=== PATIENT | male | born 1960 | race Caucasian/White ===

== ENCOUNTER 2018-05-30 11:00 | Inpatient (IN) | payer MEDICARE, OTHER ==
[~2018-05-30] VITALS: Ht 177.8 cm; Wt 63.5 kg
[~2018-05-30 11:00] MED LIST: AMIT10 PO; AMIT50 PO; Aspirin EC81 MG PO; BUPR150ER PO; LORA10ER PO; METH10 PO; OMEP20ER PO; PROM25 PO; TRAZ100 PO; [UNRECOGNIZED DRUG - OTHER] PO
[2018-05-30 11:30] LABS: BASOPHILS ABSOLUTE AUTO 0.05 K/mm3 (0.00-0.23); BASOPHILS PERCENT AUTO 1 % (0-2); EOSINOPHILS ABSOLUTE AUTO 0.16 K/mm3 (0.00-0.68); EOSINOPHILS PERCENT AUTO 2 % (0-6); Hematocrit 43.4 % (37.0-53.0); Hemoglobin 13.9 g/dL (13.5-17.5); IMMATURE GRAN ABSOLUTE AUTO 0.04 K/mm3 (0.00-0.10); IMMATURE GRAN PERCENT AUTO 0 % (0-1); LYMPHOCYTES ABSOLUTE AUTO 0.83 K/mm3 (0.84-5.20); LYMPHOCYTES PERCENT AUTO 8 % (21-46); MONOCYTES ABSOLUTE AUTO 0.84 K/mm3 (0.16-1.47); MONOCYTES PERCENT AUTO 8 % (4-13); Mean Corpuscular Volume 97 fL (80-100); Mean Platelet Volume 10.4 fL (9.1-12.4); NEUTROPHILS ABSOLUTE AUTO 9.06 K/mm3 (1.96-9.15); NEUTROPHILS PERCENT AUTO 82 % (41-73); Platelet Count 268 K/mm3 (150-400); RDW Coefficient Variation 12.4 % (11.7-14.2); RDW Standard Deviation 44.4 fL (35.1-46.3); Red Blood Cell Count 4.49 M/mm3 (4.30-5.90); White Blood Cell Count 10.98 K/mm3 (4.00-11.30)
[2018-05-30 11:44] LABS: Source, Urine Catheter
[2018-05-30 12:03] LABS: Blood, Urine 2+ (Neg); Glucose Qualitative, Urine Neg (Neg); Ketones, Urine 1+ (Neg); Leukocyte Esterase, Urine 1+ (Neg); Nitrite, Urine Neg (Neg); Protein, Urine 1+ (Neg); Specific Gravity, Urine 1.025 (1.003-1.022); Urobilinogen, Urine 2+ (Normal)
[2018-05-30 12:10] LABS: Appearance, Urine Clear (Clear); Bilirubin, Urine 1+ (Neg); Color, Urine Yellow (P-Yellow); Mucus Mod (0-Heavy)
[2018-05-30 12:12] LABS: Bacteria Few /hpf; Squamous Epithelial Cells Not Seen /hpf (Few)
[2018-05-30 12:13] LABS: Troponin I <0.015 ng/mL (0.000-0.040)
[2018-05-30 12:14] LABS: Alanine Aminotransfer (ALT/SGP 18 U/L (12-78); Albumin, Blood 3.1 g/dL (3.4-5.0); Albumin/Globulin Ratio 0.9 (0.8-1.8); Alk Phos 141 U/L (50-136); Anion Gap 4 mmol/L (6-16); Aspartate Aminotrans (AST/SGOT 44 U/L (12-37); Bilirubin, Total 0.5 mg/dL (0.1-1.0); Blood Urea Nitrogen 15 mg/dL (8-24); Bun/Creatinine Ratio 17.5 (12.0-20.0); CO2, Blood 29 mmol/L (21-32); Calcium, Blood 8.3 mg/dL (8.5-10.1); Chloride, Blood 106 mmol/L (98-108); Creatinine, Blood 0.86 mg/dL (0.60-1.20); Globulin, Blood 3.6 g/dL (2.2-4.0); Glomerular Filtration Rate >60 (60-); Glucose, Blood 93 mg/dL (70-99); Potassium, Blood 3.5 mmol/L (3.5-5.5); Sodium, Blood 139 mmol/L (136-145); Total Protein, Blood 6.7 g/dL (6.4-8.2)
[2018-05-30] MEDS ORDERED: ALBU90OI INH (13:39)
--- NOTE | 2018-05-30 18:45 | NUR ---
PT. UP IN BED BEING FED BY ROLLER STAKER. SPOUSE AT BEDSIDE WILL BE STAYING THE NIGHT.
[2018-05-31 05:38] LABS: BASOPHILS ABSOLUTE AUTO 0.05 K/mm3 (0.00-0.23); BASOPHILS PERCENT AUTO 1 % (0-2); EOSINOPHILS ABSOLUTE AUTO 0.16 K/mm3 (0.00-0.68); EOSINOPHILS PERCENT AUTO 2 % (0-6); Hemoglobin 13.1 g/dL (13.5-17.5); IMMATURE GRAN ABSOLUTE AUTO 0.02 K/mm3 (0.00-0.10); IMMATURE GRAN PERCENT AUTO 0 % (0-1); LYMPHOCYTES ABSOLUTE AUTO 1.08 K/mm3 (0.84-5.20); LYMPHOCYTES PERCENT AUTO 14 % (21-46); MONOCYTES ABSOLUTE AUTO 0.75 K/mm3 (0.16-1.47); MONOCYTES PERCENT AUTO 10 % (4-13); Mean Corpuscular HGB 30.3 pg (26.0-34.0); Mean Corpuscular Volume 95 fL (80-100); Mean Platelet Volume 10.8 fL (9.1-12.4); NEUTROPHILS ABSOLUTE AUTO 5.79 K/mm3 (1.96-9.15); NEUTROPHILS PERCENT AUTO 74 % (41-73); Platelet Count 261 K/mm3 (150-400); RDW Coefficient Variation 12.2 % (11.7-14.2); RDW Standard Deviation 42.5 fL (35.1-46.3); Red Blood Cell Count 4.33 M/mm3 (4.30-5.90); White Blood Cell Count 7.85 K/mm3 (4.00-11.30)
[2018-05-31 06:12] LABS: Alanine Aminotransfer (ALT/SGP 28 U/L (12-78); Albumin, Blood 3.1 g/dL (3.4-5.0); Albumin/Globulin Ratio 0.9 (0.8-1.8); Anion Gap 8 mmol/L (6-16); Aspartate Aminotrans (AST/SGOT 31 U/L (12-37); Bilirubin, Total 0.5 mg/dL (0.1-1.0); Blood Urea Nitrogen 18 mg/dL (8-24); Bun/Creatinine Ratio 20.5 (12.0-20.0); CHOL/HDL RATIO 3.9; CO2, Blood 27 mmol/L (21-32); Calcium, Blood 8.4 mg/dL (8.5-10.1); Chloride, Blood 105 mmol/L (98-108); Cholesterol 135 mg/dL (50-200); Creatinine, Blood 0.88 mg/dL (0.60-1.20); Globulin, Blood 3.4 g/dL (2.2-4.0); Glomerular Filtration Rate >60 (60-); Glucose, Blood 86 mg/dL (70-99); HDL Cholesterol 35 mg/dL (>39); LDL/HDL RATIO 2.4; Low Density Lipoprotein Chol 84 mg/dL (0-110); Magnesium, Blood 2.3 mg/dL (1.6-2.4); Potassium, Blood 3.5 mmol/L (3.5-5.5); Sodium, Blood 140 mmol/L (136-145); Total Protein, Blood 6.5 g/dL (6.4-8.2); Triglycerides 79 mg/dL (30-160); Very Low Density Lipoprot Chol 15 mg/dL (6-32)
[2018-05-31 06:35] LABS: Alk Phos 139 U/L (50-136)
--- NOTE | 2018-05-31 07:20 | NUR ---
05/31/18 0610 stayed with pt all night. Pt repositioned q 2 hours.kandis care given. Only took small sips of soda last night. W lisa states he has been eating poorly lately. Mumbles when asked questions.
--- NOTE | 2018-05-31 13:50 | NUR ---
Patient was lying in bed with , Toyin, bedside. Patient did not track well with conversation but did mumble and display many facial expressions. I talked at length with Toyin facilitating a life/family review, learning about the patient's medical history and Toyin's struggles throughout the process. I explored spiritual beliefs, provided companionship and encouraged self-care. Patient and Toyin responded well and Toyin expressed gratitude for the visit.
--- NOTE | 2018-05-31 17:44 | NUR ---
SHIFT SUMMARY PATIENT PLEASANT. MILDLY CONFUSED AND GARBLED SPEECH RELATED TO HIS PARKINSONS. PATIENT HAS GROSS MOVEMENT IN HIS EXTREMITIES.
--- NOTE | 2018-06-01 07:09 | NUR ---
SHIFT SUMMARY PT IS A 58 Y/O MALE, ADMITTED FOR WEAKNESS. HE HAS A HX OF PARKINSONS, AND IS VERY STIFF WITH SOME CONTRACTURES IN THE BUE. THE PT SLEPT VERY WELL DURING THE NIGHT, AND WOULD NOT WAKE ENOUGH TO TAKE HIS BEDTIME SINEMET. VITALS REMAINED STABLE. PT APPEARED COMFORTABLE WITH NO S/S OF PAIN OR DISTRESS DURING THE NIGHT. PT'S REMAINED IN THE ROOM. NO OTHER ACUTE CHANGES IN PT CONDITION NOTED. WILL CONTINUE TO MONITOR AND TREAT PER EMAR.
--- NOTE | 2018-06-01 17:03 | NUR ---
SHIFT SUMMARY PATIENT PLEASANT. BEDBOUND CURRENTLY. WORKED WITH PHYSICAL THERAPY TODAY AND WAS ABLE TO STAND ALTHOUGH HE WAS NOT MOTIVATED. BED ALARM ON, PATIENT EATING FOR HIS .
[2018-06-02 06:29] LABS: BASOPHILS ABSOLUTE AUTO 0.05 K/mm3 (0.00-0.23); BASOPHILS PERCENT AUTO 1 % (0-2); EOSINOPHILS ABSOLUTE AUTO 0.22 K/mm3 (0.00-0.68); EOSINOPHILS PERCENT AUTO 2 % (0-6); Hematocrit 42.8 % (37.0-53.0); Hemoglobin 13.6 g/dL (13.5-17.5); IMMATURE GRAN ABSOLUTE AUTO 0.04 K/mm3 (0.00-0.10); IMMATURE GRAN PERCENT AUTO 0 % (0-1); LYMPHOCYTES ABSOLUTE AUTO 0.96 K/mm3 (0.84-5.20); LYMPHOCYTES PERCENT AUTO 9 % (21-46); MONOCYTES ABSOLUTE AUTO 0.71 K/mm3 (0.16-1.47); MONOCYTES PERCENT AUTO 7 % (4-13); Mean Corpuscular HGB 30.6 pg (26.0-34.0); Mean Corpuscular HGB Conc 31.8 g/dL (31.5-36.5); Mean Corpuscular Volume 96 fL (80-100); Mean Platelet Volume 10.6 fL (9.1-12.4); NEUTROPHILS ABSOLUTE AUTO 8.39 K/mm3 (1.96-9.15); NEUTROPHILS PERCENT AUTO 81 % (41-73); Platelet Count 285 K/mm3 (150-400); RDW Coefficient Variation 12.1 % (11.7-14.2); RDW Standard Deviation 43.4 fL (35.1-46.3); Red Blood Cell Count 4.44 M/mm3 (4.30-5.90); White Blood Cell Count 10.37 K/mm3 (4.00-11.30)
[2018-06-02 06:57] LABS: Alanine Aminotransfer (ALT/SGP 10 U/L (12-78); Albumin/Globulin Ratio 0.9 (0.8-1.8); Alk Phos 144 U/L (50-136); Anion Gap 7 mmol/L (6-16); Aspartate Aminotrans (AST/SGOT 15 U/L (12-37); Bilirubin, Total 0.6 mg/dL (0.1-1.0); Blood Urea Nitrogen 22 mg/dL (8-24); Bun/Creatinine Ratio 23.7 (12.0-20.0); CO2, Blood 29 mmol/L (21-32); Calcium, Blood 8.5 mg/dL (8.5-10.1); Chloride, Blood 104 mmol/L (98-108); Creatinine, Blood 0.93 mg/dL (0.60-1.20); Globulin, Blood 3.5 g/dL (2.2-4.0); Glomerular Filtration Rate >60 (60-); Glucose, Blood 98 mg/dL (70-99); Potassium, Blood 3.7 mmol/L (3.5-5.5); Sodium, Blood 140 mmol/L (136-145); Total Protein, Blood 6.5 g/dL (6.4-8.2)
--- NOTE | 2018-06-02 07:20 | NUR ---
cooperative, responsive to voice, hard to assess due to minimum verbal responses, call light in reach, saline locked, walking rounds completed with returning day staff
--- NOTE | 2018-06-02 17:47 | NUR ---
SHIFT SUMMARY NO ACUTE CONCERNS AT THIS TIME. PATIENT IS ASSESSED, STILL STRUGGLING TO FULFILL THE ASSESSMENT DUE TO THE PATIENTS INABILITY TO COMMUNICATE. HIS SPEECH IS BECOMING MORE GARBLED. WILL CONTINUE TO MONITOR FOR CHANGES.
--- NOTE | 2018-06-03 06:27 | NUR ---
SHIFT SUMMARY PT IS A 58 Y/O FEMALE, ADMITTED FOR WEAKNESS. HE HAS A HX OF PARKINSON'S, AND IS VERY STIFF AND DIFFICULT TO MOVE AND TURN. HE IS A&O X SELF AND FAMILY, AND OCCASIONALLY RESISTANT TO CARE. HIS REMAINS AT THE BEDSIDE DURING THE NIGHT. HE DENIED ANY COMPLAINTS OF PAIN, NAUSE OR SOB, AND APPEARED TO REST COMFORTABLY THROUGH THE NIGHT. VITALS REMAINED STABLE. NO OTHER ACUTE CHANGES IN PT CONDITION NOTED. WILL CONTINUE TO MONITOR AND TREAT PER EMAR.
--- NOTE | 2018-06-03 18:54 | NUR ---
SHIFT SUMMARY: PT SHOWED SIGNS OF PAIN THIS MORNING AND EARLY AFTERNOON. MEDICATED WITH PO ULTRAM CRUSHED IN APPLESAUCE. THIS EVENING HE REFUSED ALL PO MEDICATIONS AND DINNER. HE WORKED WITH PT/OT, SEE THEIR NOTES ON CARE. HE IS A FULL ASSIST. NEEDS ASSIST WITH MEALS. ROB LIFT FOR ANY OUT OF BED. HE IS NOT ABLE TO STAND AT BEDSIDE. ATTENDS IN PLACE FOR INCONT.
[2018-06-04 06:06] LABS: Albumin, Blood 2.9 g/dL (3.4-5.0); Anion Gap 7 mmol/L (6-16); Blood Urea Nitrogen 15 mg/dL (8-24); Bun/Creatinine Ratio 20.4 (12.0-20.0); CO2, Blood 22 mmol/L (21-32); Calcium, Blood 8.4 mg/dL (8.5-10.1); Chloride, Blood 103 mmol/L (98-108); Creatinine, Blood 0.74 mg/dL (0.60-1.20); Glomerular Filtration Rate >60 (60-); Glucose, Blood 100 mg/dL (70-99); Phosphorus, Blood 2.9 mg/dL (2.5-4.9); Potassium, Blood 4.5 mmol/L (3.5-5.5); Sodium, Blood 132 mmol/L (136-145)
--- NOTE | 2018-06-04 06:49 | NUR ---
SHIFT SUMMARY PT VERY WEAK AND SLEEPY ENTIRE SHIFT. IN RM AT BS THRU OUT THE SHIFT. ABLE TO WAKE PT BRIEFLY AND ASSIST PT WITH HS MEDS. BOWEL CARE GIVEN AT HS. EFFECTIVE THIS AM. PT INCONTINENT OF BOWEL AND BLADDER. HX OF PARKINSONS WITH CONTRACTURES, BUT PREVIOUSLY AMBULATORY PRIOR TO FALL AT HOME; PT NOW BED BOUND WITH CONFUSION AND GARBLED SPEECH. PER SHIFT REPORT, LABS AND TESTS NEGATIVE FOR CVA. LIDOCAINE PATCH REMOVED FROM LOW BACK AT HS, PER EMAR. PT FLOATED ON PILLOWS FOR COMFORT D/T CONTRACTURES. REPORT GIVEN TO ONCOMING RN.
--- NOTE | 2018-06-04 09:48 | NUR ---
review of patient with angélica therapist. Gracie leigh visit this week will meet with today. to review a plan.
--- NOTE | 2018-06-04 11:45 | NUR ---
Attempted to visit with Georges and his . Georges is currently resting with eyes closed and there are several visitors at the bedside talking with his . His requested that PC return later today.
--- NOTE | 2018-06-04 15:30 | NUR ---
Long conversation with Toyin this afternoon in Georges's room. He slept during the whole visit. Toyin is requesting for Georges to be a DNR and is interested in hospice services. She reports that over the past week Georges has stopped walking, stopped eating, stopping drinking and she feels that "He has given up." She reports his dementia has progressed to the point where she had to quick her job as he wasn't able to be home alone safely. Toyin states he is at risk for aspiration when evaluated by ST and Toyin states that Georges was unable to follow directions or participate in therapy visit. Georges had a fall recently and has a compression fracture in his back. She reports his quality of life has greatly declined and after speaking with her sons they agree that hospice is a good option for Georges. Toyin states they live on Georges's social security income $1400 a month. She states $700 goes to rent and by the time utilites are paid there is very little money left. She receives $300/month in food stamps. She is working with [employer] to start the Medicaid process. Encouraged her to contact aging and people with disabilities [facility] to get the medicaid process started. Toyin states she doesn't feel like she is able to take care of Georges 11/09. She states her son can help out some, but isn't always available. They live in [place]. She is hopeful that she will be able to find a foster home type facility close to [place] where Georges could go to be cared for on hospice. SISSY for Idalia, account planner to follow up with Toyin re: wanda planning. Discussed hospice services with Toyin and answered her questions. She would like to pursue this option. Will talk with Dr. Alba re: DNR and comfort care orders per Toyin's request. Finances are going to be a discharge barrier for Georges. [employer] is working with Toyin. PC will continue to follow for symptom management.
--- NOTE | 2018-06-04 18:28 | NUR ---
Pt and family are non-christian. Georges slept throughout visit while I spoke to spouse, Toyin at bedside. She admits to feeling overwhelmed. She is clearly grieving Georges' rapid decline. She is worried about many things going forward. Toyin states that she has been told she must Georges home with hospice until a suitable place is available. Toyin is very worried that she will not be able to provide that care Georges needs. She admits she has not slept well "in days." Toyin responded well to being heard and affirmed. Advised she continue to express her concerns to nursing and discharge team. I also assured her of highly skilled and compassionate hospice support. This appeared to calm her. I will remain availbable.
--- NOTE | 2018-06-04 18:37 | NUR ---
SHIFT SUMMARY COMFORT CARE. SPOUSE AT BEDSIDE FOR MOST OF DAY. ABLE TO SWALLOW MEDS CRUSHED IN PUDDING/YOGURT. CONTRACTURES, BEDREST. DECREASED APPETITE AND URINE OUTPUT. NOT COMMUNICATING VERBALLY TODAY. OPENS EYES SPONTANEOUSLY. PUREED/SOFT DIET. THICKENED LIQUIDS. AWAITING HOSPICE.
--- NOTE | 2018-06-05 05:26 | NUR ---
PRINTING MACHINE OPERATOR TAPE RULES SUMMARY NO ACUTE CHANGES THIS SHIFT. PT REMAINS ON COMFORT CARE. PT FAIRLY ALERT AND ORIENTED AT START OF SHIFT, ANSWERING SOME QUESTIONS AND INTERACTING WITH HIS . PT STATES "THIS IS THE MOST HE'S TALKED IN A FEW DAYS". PT DENIES PAIN, SOB, N/V. TAKES PILLS WELL WITH PUDDING. WILL CONTINUE TO KEEP PT COMFORTABLE.
--- NOTE | 2018-06-05 13:08 | NUR ---
Pt is resting in bed upon arrival. His Toyin present during visit. Pt reports his pain is currently managed and denies any need for pain intervention at this time. Toyin reports she is still considering hospice but her biggest concerns is finding placement. No other concerns reported at this time. Spoke with Pt's nurse Maria M and she reports no concens at this time. Spoke with palliative nurse Reina and she reports ostomy care nurse Colleen currently working with Pt and family with medicaid process. Will remain available.
--- NOTE | 2018-06-05 14:27 | NUR ---
UPDATE PT. TRIED TO STAND ON HIS OWN BECAUSE HE THOUGHT HE NEEDED TO LEAVE. HIS WAS THERE TO HELP HIM AND CALM HIM DOWN. HE SAT DOWN ON THE EDGE OF THE BED AND ALLOWED US TO SHAVE HIM. THIS CAUSED HIM PAIN SO WE MEDICATED WITH TRAMADOL. HE IS RESTING NOW. LEFT FOR A MIN BUT DID MENTION THAT SHE WOULD LIKE TO TAKE HIM FOR A WALK WHEN SHE GETS BACK
--- NOTE | 2018-06-05 15:11 | NUR ---
UPDATE PT. WENT ON WALK IN WHEELCHAIR WITH
--- NOTE | 2018-06-05 17:05 | NUR ---
UPDATE ATTENDS CHECKED AND WAS DRY
--- NOTE | 2018-06-05 18:26 | NUR ---
HE IS NOW IN ROOM 360. HIS IS AT HIS BEDSIDE. CC CART FOR FAMILY IN THE ROOM. SHE WAS FEEDING HIM DINNER. HE DID NOT EAT WELL BUT BETTER, SHE SAYS THAN THE PAST 2 DAYS. DINNER MEDS GIVEN WHOLE IN HIS MASHED POTATOES. HE IS CONFUSED BUT CALM. SAYS SHE THINKS HE IS PRETTY COMFORTABLE.
--- NOTE | 2018-06-05 18:29 | NUR ---
HE IS NOW IN ROOM 360. AT BEDSIDE. SHE FED HIM SOME DINNER. SHE FEELS HE IS PRETTY COMFORTABLE. HE IS CONFUSED BUT CALM. CC CART IN ROOM FOR FAMILY. HIS SAYS SHE MAY NOT SPEND THE NIGHT TONIGHT.
--- NOTE | 2018-06-06 06:08 | NUR ---
SHIFT SUMMARY PT IS A 58 Y/O MALE, ADMITTED FOR WEAKNESS AND CURRENTLY ON COMFORT CARE. THE PT IS A&O X SELF AND FAMILY ONLY, WITH A HISTORY OF DEMENTIA AND PARKINSONS, AND GARBLED SPEECH. THE PT APPEARED COMFORTABLE THROUGH THE NIGHT, WITH NO COMPLAINTS OF S/S OF PAIN, NAUSEA OR SOB. NO OTHER ACUTE CHANGES IN CONDITION NOTED. WILL CONTINUE TO MONITOR AND TREAT PER EMAR.
--- NOTE | 2018-06-06 08:14 | NUR ---
PATIENTS ATTENDS WERE CHECKED AND THEY WERE CLEAN AND DRY.
--- NOTE | 2018-06-06 08:59 | NUR ---
PATIENT ATE 100% AND DRANK 120 OF ORANGE JUICE AND WAS FED.
--- NOTE | 2018-06-06 10:19 | NUR ---
ALERT, CONFUSED, COMFORTABLE. WILL BE FED BREAKFAST.
--- NOTE | 2018-06-06 10:20 | NUR ---
ATE SOME BREAKFAST AND TOOK MEDS WHOLE IN PUDDING. ATTENDS DRY SO FAR THIS SHIFT. CONFUSED. SAT UP ON SIDE OF BED. HE APPEARS COMFORTABLE.
--- NOTE | 2018-06-06 11:35 | NUR ---
Went to visit with Toyin and Georges this morning. Georges is laying in bed staring at the TV. He did not turn his head or look toward the direction of this mortgage underwriter as I walked in the room. Toyin is at the bedside, there is a room full of people visiting at this time. Will allow them to visit. Georges appears to be comfortable at this time. CM notes reviewed. PC will continue to stress the importance of getting the medicaid process going. Pt was fed this morning and ate all of his meal. He doesn't appear imminent at this time. PC will continue to follow for symptom manangement and family support through the discharge planning process.
--- NOTE | 2018-06-06 12:20 | NUR ---
HIS AND 4 OTHER VISITORS WERE HERE FOR ABOUT AN HOUR. DRINKS ON CC CART RENEWED. ALL VISITORS GONE NOW. BASEBALL CLUB MANAGER IS FEEDING HIM SOME LUNCH. NO APPARENT DISTRESS.
--- NOTE | 2018-06-06 13:31 | NUR ---
PATIENT ATE 100% OF LUNCH AND DRANK 120% OF JUICE AND IS A FEEDER.
--- NOTE | 2018-06-06 16:02 | NUR ---
NO CHANGES. HIS JUST RETURNED.
--- NOTE | 2018-06-06 16:03 | NUR ---
NO CHANGES. HE HAS BEEN AWAKE ALL DAY AND APPEARS COMFORTABLE.
--- NOTE | 2018-06-06 16:09 | NUR ---
PATIENT WAS ABLE TO USE THE URINAL WITH ASSISTANCE THIS SHIFT AND VOIDED 200.
--- NOTE | 2018-06-06 17:13 | NUR ---
PATIENTS ATTENDS WERE CHECKED AND THEY WERE CLEAN AND DRY. PATIENT ALSO VOIDED 100 IN URINAL.
--- NOTE | 2018-06-06 18:10 | NUR ---
HIS FED HIM SOME DINNER. NO CHANGES. HE HAS HX OF PAIN BUT I CANNOT SEE PAIN AND HE IS UNRELIABLE IN HIS ANSWERS DUT TO HIS DEMENTIA. HE HAS LOOKED COMFORTABLE ALL DAY.
--- NOTE | 2018-06-07 06:21 | NUR ---
SHIFT SUMMARY PT IS A 58 Y/O MALE, WITH A HX OF DEMENTIA AND PARKINSONS, ADMITTED FOR WEAKNESS. HE IS A&O X SELF AND FAMILY ONLY, AND CURRENTLY ON COMFORT CARE AND BEDREST. PT APPEARED COMFORTABLE AND SLEPT WELL THROUGH THE NIGHT WITH NO S/S OF PAIN OR DISTRESS. PT'S REMAINED IN THE ROOM THROUGH THE NIGHT. NO OTHER ACUTE CHANGES IN PT CONDITION NOTED. WILL CONTINUE TO MONITOR AND TREAT PER EMAR.
--- NOTE | 2018-06-07 08:03 | NUR ---
PATIENTS ATTENDS WERE CAHNGED AND PATIENT WAS REPOSITIONED.
--- NOTE | 2018-06-07 09:45 | NUR ---
PATIENT ATE 50% OF BREAKFAST AND DRANK 120 OF ORANGE JUICE AND WAS A FEEDER.
--- NOTE | 2018-06-07 11:20 | NUR ---
PATIENTS ATTENDS WERE CHECKED AND THEY WERE CLEAN AND DRY. PATIETN IS REPOSTIONING HIMSELF IN THE BED AT THIS TIME.
--- NOTE | 2018-06-07 12:57 | NUR ---
PATIENT ATE 25% OF LUNCH THIS SHIFT AND DRANK 120 OF APPLE JUICE AND WAS FED.
--- NOTE | 2018-06-07 12:58 | NUR ---
PATIENTS ATTENDS WERE CHECKED AND THEY WERE CLEAN AND DRY AND PATEINT WAS REPOSTIONED.
--- NOTE | 2018-06-07 15:02 | NUR ---
PATIENTS ATTENDS WERE CHANGED AND PATIENT WAS REPOSITIONED.
--- NOTE | 2018-06-07 19:33 | NUR ---
SHIFT SUMMARY- PT HAS HAD NO ACUTE CHANGES T/O THE DAY. SPEECH IS GARBLED AND DIFFICULT TO UNDERSTAND AND PT HAS SLEPT T/O THE SHIFT; STATES THIS IS A BAD DAY, USUALLY HE WILL DO THIS FOR TWO DAYS AND THEN HE WILL HAVE A GOOD DAY. SOME MEDICATIONS WERE NOT ADMINISTERED D/T PT SLEEPING AND UNABLE TO WAKE.PT SPOUSE IS AT BEDSIDE, BEDSIDE REPORT COMPLETE.
--- NOTE | 2018-06-08 04:34 | NUR ---
SHIFT SUMMARY PT HAS SLEPT T/O SHIFT. PT AND SPOUSE REFUSED PM MEDS. PT HAD BED BATH AND LINEN CHANGED. PT HAD NO ISSUES WITH DISCOMFORT OR ANXIETY. PT STAYED NIGHT WITH PT. PT CURRENTLY SLEEPING AND IN NO DISTRESS. CALL LIGHT IN REACH AND BED ALARM ON.
--- NOTE | 2018-06-08 18:00 | NUR ---
SHIFT SUMMARY PT AGITATED THIS AM & REFUSED TO TAKE MOST MEDICATIONS. PT MORE RELAXED THIS AFTERNOON/EVENING. PT TOOK PAIN MEDICATION ONCE THIS SHIFT. PT RESTING IN BED WITH AT BEDSIDE. PHYSICAL THERAPY WORKED WITH PT THIS SHIFT. WILL CONTINUE TO MONITOR FOR PAIN/DISCOMFORT UNTIL TURNOVER IS COMPLETE.
--- NOTE | 2018-06-08 23:33 | NUR ---
COMFORT CARE 7036 MEDICATIONS GIVEN AT THIS TIME. DID NOT TAKE COLACE (SPIT OUT BOTH). REPOSITIONED. DIMITRIOS-CARE AND BREIF CHANGE AT THIS TIME. GIVEN THICKENED OJ. BED IN LOWEST POSITION. ALARM ON. CALL LIGHT WITHIN REACH. AT BEDSIDE. WCTM.
--- NOTE | 2018-06-09 00:01 | NUR ---
COMFORT CARE 0001 APPEARED TO BE RESTING. WITHOUT C/O PAIN/DISCOMFORT. REPOSITIONED. AT BEDSIDE. WCTM. BED IN LOWEST POSITION. ALARM ON.
--- NOTE | 2018-06-09 03:55 | NUR ---
COMFORT CARE 0215 REPOSITIONED. APPEARS TO BE RESTING COMFORTABLY. AT BEDSIDE. BED IN LOWEST POSITION. CALL LIGHT WITHIN REACH. [facility].
--- NOTE | 2018-06-09 04:43 | NUR ---
COMFORT CARE 0443 APPEARS TO BE RESTING COMFORTABLY. AT BEDSIDE. NO ACUTE CHANGES. BED IN LOWEST POSITION. ALARM ON. CALL LIGHT IN REACH. WCTM.
--- NOTE | 2018-06-09 06:48 | NUR ---
COMFORT CARE 0632 REPOSITIONED SHORTLY PRIOR TO ASSESSMENT WELL BREIF CHANGE. APPEARS TO BE RESTING COMFORTABLY. AT BEDSIDE. CALL LIGHT WITHIN REACH. BED IN LOWEST POSITION. [facility].
--- NOTE | 2018-06-09 07:24 | NUR ---
SHIFT SUMMARY ALERT, ANSWERS QUESTIONS SLOWLY, BUT APPROPRIATELY. NO ACUTE CHANGES OVERNIGHT. REPOSITIONING AND ATTENDS CHANGES APPROPRIATELY. AT BEDSIDE. CALL LIGHT WITHIN REACH. BED IN LOWEST POSITION. CONTINUED TO MONITOR THROUGHOUT SHIFT. REPORT GIVEN TO ONCOMING RN.
--- NOTE | 2018-06-09 18:00 | NUR ---
NO ACUTE CHANGES NOTED THIS SHIFT, PO MEDS TAKEN EXCEPT COLACE, SAYS HE SPITS THEM OUT AND WANTS ONLY THE MIRALAX GIVEN. PT TURNED AND CHANGED NEEDED. WILL CONTINUE TO MONITOR AND REPORT TO ONCOMING RN
--- NOTE | 2018-06-10 04:26 | NUR ---
SHIFT SUMMARY NO ISSUES NOTED. PT REMAINED COMFORTABLE AND RELAXED. PT CURRENTLY SLEEPING WITH IN ATTENDANCE. CALL LIGHT IN REACH AND BED ALARM ON.
--- NOTE | 2018-06-10 10:46 | NUR ---
Stopped in to check on Bertram this morning. He is alone in his room at this time. Nursing just finished giving am meds to him. He waved to this mortgage or loan underwriter as I walked into his room. He is alert, but his speech is garbled and difficult to understand. He doesn't appear to be in any distress at this time. Reviewed chart and notes. Will attempt to visit with Toyin when she returns to his room. [employer] is working with Toyin re: a safe discharge plan.
--- NOTE | 2018-06-11 04:47 | NUR ---
SHOE REPAIRER HELPER SUMMARY NO ACUTE CHANGES THIS SHIFT. PT REMAINS ON COMFORT CARE. AAOX1-2, SOMETIMES RESPONSIVE. TREATED FOR PAIN X1 WITH 5 MG ROXANOL, PT ABLE TO REST COMFORTABLY AFTER. PT ABLE TO TAKE MEDS WITH APPLESAUCE WELL. WILL CONTINUE TO MONITOR.
--- NOTE | 2018-06-11 14:35 | NUR ---
Pt visit this afternoon. Pt appears comfortable. His speech is difficult to understand and mumbles with verbal response. No signs of distress at this time. Spoke with Pt's bedside nurse Leslie and she reports no concerns at this time. Will remain available.
--- NOTE | 2018-06-11 18:36 | NUR ---
SHIFT SUMMARY AWAY FROM ROOM MOST OF DAY AND RETURNED THIS EVENING. PT HAS ATTEMPTED TO CLIMB OOB 2-3 TIMES TODAY. WAS UNAROUSABLE THIS MORNING BUT THEN DID WAKEN LATER IN MORNING AND TOOK A.M. MEDS. HAS HAD PERIODS WHERE HE WOULD INTERACT AND OTHERS WHEN HE WOULD JUST STAR AHEAD AND NOT RESPOND.
--- NOTE | 2018-06-11 19:30 | NUR ---
Pt returned from going outside for a smoke. Pt had the iv pump with him but it had quit according to patient. I was unable to get powerglide to flush. Antibiotics are not due until 1600 tomorrow. Charge nurse notifed and i was instructed to take no further actions for now.
--- NOTE | 2018-06-11 22:55 | NUR ---
pT REFUSED ALL MEDICATIONS TONIGHT. cOULD NOT GET PT TO TAKE his mirilax or carpidopa even with help of his . Pt unable or unwilling to follow commands at all this pm. Pt tried to hit staff when attends were being changed.
--- NOTE | 2018-06-12 03:41 | NUR ---
Shift summary: Pt on comfort care. I was unable to get pt to take his medications and miralax last pm. Pt would not open his mouth. Pt changed x 1 without much cooperation. Pt tried to hit nurse as she was trying to turn him. Pt alert and oriented x 0 last pm. His mentation seems to change from one day to next. at bedside. She could not get him to take anything either. Pt did not try to get out of bed. Pt slept most of shift.
--- NOTE | 2018-06-12 07:48 | NUR ---
PT IS LAYING IN BED. NO SIGNS OF DISTRESS, PAIN OR SOB. EVEN AND UNLABORED BREATHING. THE PATIENT'S JUST LEFT THE ROOM TO GRAB BREAKFAST.
--- NOTE | 2018-06-12 08:22 | NUR ---
PT WAS ABLE TO TAKE MEDICATIONS THIS MORNING. HIS SPOUSE IS HELPING HIM EAT BREAKFAST THIS MONRING. HE IS ALERT. SLOW TO RESPOND.
--- NOTE | 2018-06-12 10:23 | NUR ---
PT WAS ALERT THIS MORNING UPON AWAKENING. HIS HELPED FEED HIM BREAKFAST AND HE TOOK HIS MORNING MEDICATIONS WITH EASE. THE PT WAS A 1PA TO AND FROM THE [facility]. HE HAS AN XL BM. HE RECIEVED A BED BATH. HE DOES HAS A BIT OF A COUGH, WET SOUNDING.
--- NOTE | 2018-06-12 10:40 | NUR ---
Met with Toyin in Bertram's room this morning. He is awake, but is currently laying in bed on his left side. Resp even and no distress is noted. Toyin states she is still waiting to hear back from [employer], she contacted them initially on Sunday. She states yesterday she went home and was able to get some rest. She relies on her son currently for transportation as her car is not currently running. Toyin denies any needs at present. She has no questions or concerns at this time. PC will continue to follow for symptom management.
--- NOTE | 2018-06-12 16:22 | NUR ---
PT WAS SEEN BY PHYSICAL THERAPY. PT WAS UP IN THE CHAIR FOR ABOUT AN HOUR TODAY. HE IS BACK IN BED NOW.
--- NOTE | 2018-06-12 17:10 | NUR ---
PT IS ALERT AND ORIENTED TO HIS . HE IS SLOW TO RESPOND. HE HAS HAD A GOOD APPETITE TODAY. HE PARTICIPATED WITH PHYSICAL THERAPY. HE HAD A BOWEL MOVEMENT THIS MORNING. WILL CONTINUE TO MONITOR
--- NOTE | 2018-06-12 23:22 | NUR ---
PT AWAKE DURING SHIFT REPORT, LYING HF WITH AT BS. PT ADMITTED FOR WEAKNESS WITH HX OF PARKINSONS, COPD, AND DEMENTIA. PT HAD FALL AT HOME AND HAS NOT RECOVERED. PT NOW COMFORT CARE AND TO TRANSFER TO HOSPICE AT D/C. SPEECH DIFFICULT TO UNDERSTAND. LIMITED MOBILITY, BUT NO S/SX OF DISTRESS NOTED OR REPORTED. WILL REPORT TO GEORGINA LESTER.
--- NOTE | 2018-06-13 00:45 | NUR ---
COMFORT CARE 0045 IN HALLWAY REQUESTING MORE WIPES FOR ATTENDS CHANGES. ASKED X2 IF NEED HELP CHANGING PATIENT SHE STATED "NO". APPEARS TO BE COMFORTABLE. NO ACUTE DISTRESS NOTED. BED IN LOWEST POSITION. [facility].
--- NOTE | 2018-06-13 00:46 | NUR ---
0015 RECEIVED REPORT FROM TAYLER FRANCO. ASSUMED CARE OF PATIENT.
--- NOTE | 2018-06-13 04:08 | NUR ---
SHIFT SUMMARY NO ACUTE CHANGES OVERNIGHT. AT BEDSIDE. REPOSITIONING COMPLETED APPROPRIATE. CALL LIGHT IN REACH. BED IN LOWEST POSITION. WCTM. REPORT TO ONCOMING RN.
--- NOTE | 2018-06-13 04:19 | NUR ---
COMFORT CARE 0419 APPEARS TO BE RESTING COMFORTABLY. AT BEDSIDE. NO ACUTE CHANGES. BED IN LOWEST POSITION. CALL LIGHT WITHIN REACH. [facility].
--- NOTE | 2018-06-13 06:03 | NUR ---
COMFORT CARE 0605 APPEARS TO BE RESTING COMFORTABLY. AT BEDSIDE. NO ACUTE CHANGES. BED IN LOWEST POSITION. CALL LIGHT IN REACH. [facility].
--- NOTE | 2018-06-13 16:54 | NUR ---
SHIFT SUMMARY AT BEDSIDE MOST OF DAY. PROVIDING MOST OF HIS CARE LIKE FEEDING AND CHANGING HIM. PT AWAKE AND ALERT FOR ME AND VERBALLY RESPONSIVE ANSWERING QUESTIONS APPROPRIATELY AND ASKING QUESTIONS OF STAFF. INCONTINENT OF URINE. REQUESTING DRINKS SEVERAL TIMES TODAY.
--- NOTE | 2018-06-14 04:04 | NUR ---
SHIFT SUMMARY PATIENT ON COMFORT CARE. SPOUSE REPORTS TO HOLD EVENING MEDICATION WITH PATIENT LETHARGIC AFTER A DAY SHIFT PAIN MED. SPOUSE PRESENT FOR A FEW HOURS INTO THE SHIFT. NO S/SX OF PAIN, SOB, AND NV/. NO IV ACCESS. BED ALARM ACTIVATED. CALL LIGHT IN REACH. WILL CONTINUE TO MONITOR UNTIL DAY SHIFT NURSE ASSUMES CARE.
--- NOTE | 2018-06-14 18:31 | NUR ---
SHIFT SUMMARY PATIENT HAS BEEN DISCHARGED BY DR. SHARMA. WE HAVE MADE ATTEMPTS TO CALL THE FOR DISCHARGE TRANSPORTATION. WE CANNOT SEND THE PATIENT HOME WITH NO ONE HOME. LEFT A MESSAGE ON THE HOME PHONE TO CALL MEDICAL FLOOR. PATIENT DOES NOT QUALIFY FOR HOSPICE AT THIS TIME ACCORDING TO CARE MANAGEMENT.
--- NOTE | 2018-06-15 05:58 | NUR ---
SHIFT SUMMARY PT REMAINED WITH US THIS EVENING DESPITE HAVING A DISCHARGE ORDER DUE TO STAFF BEING UNABLE TO REACH PT'S BY PHONE AND IT BEING UNSAFE TO DISCHARGE PT HOME WITHOUT BEING THERE. NOTIFIED FACULTY INSTRUCTOR HOSPITALIST KENDY MCKEON. PT OVERALL HAD UNEVENTFUL NIGHT. INCONTINENT OF URINE AND HAD TWO SMALL SMEARS OF STOOL. HOWEVER NOT VERY MUCH OUTPUT THIS EVENING. PT REFUSED ANY ORAL INTAKE. ATTEMPTED BOTH FOOD AND DRINK THROUGHOUT THE NIGHT AND PT ONLY WANTED "CHEEZ-ITS". DUE TO PT BEING A HIGH ASPIRATION RISK THIS WAS NOT A POSSIBILITY. PT DENIED PAIN THROUGH MOST OF THE NIGHT, ONLY REPLYING "YES, I WAS GONNA GO TO THE ER" ONCE. MEDICATED W/ 10 MG ROXANOL. EXCEPT FOR FINDING PT STANDING AT SIDE OF BED AT START OF SHIFT PT HAS REMAINED IN BED THROUGHOUT THE NIGHT. BED ALARM PLACED AFTER PT FOUND AT BEDSIDE. PT RESTING IN BED AT THIS TIME. APPEARS COMFORTABLE.
--- NOTE | 2018-06-15 13:43 | NUR ---
CALL TO /CONFIRM DC TIME SPOKE WITH JIM TO CONFIRM SHE WILL BE HOME WHEN PATIENT ARRIVES AFTER DISCHARGE. [facility] TO PICK PATIENT UP AT 4PM. PER CARE MANAGEMENT NOTE HAS CHOSEN [facility] THE HH PROVIDER FOR PATIENT. PER COAL PIPELINE OPERATOR NOT PAPERWORK HAS BEEN FAXED TO [facility]. JIM STATES SHE HAS SPOKEN WITH [facility] WELL.
[2018-06-15] MEDS ORDERED: SINEMET 25-1001 EACH PO (14:40)
[2018-06-15] MEDS ORDERED: LIDO700A20 TOP (14:40)
[2018-06-15] MEDS ORDERED: MORP20L SL (14:41)
[2018-06-15] MEDS ORDERED: Namenda5 MG PO (14:41)
--- NOTE | 2018-06-15 16:12 | NUR ---
DISCHARGE PATIENT DISCHARGING HOME [facility]. [facility]IR TRANSPORT. DISCHARGE PACKET AND HARD COPY PRESCRIPTION GIVEN TO DEPUTY SHERIFF LIEUTENANT. RN CALLED JIM TO INFORM HER PATIENT WAS ON THE WAY. SHE STATED SHE WAS HOME WAITING TO RECIEVE THE PATIENT.
== END 2018-06-15 16:09 | disposition home health service (06) | DRG 56 ==
LOC: ER 11:00 → MEDS 14:35
PROVIDERS: Emergency Medicine; Internal Medicine; ADMIT Internal Medicine
DX: G31.83 Neurocognitive disorder with Lewy bodies (principal); E43 Unspecified severe protein-calorie malnutrition; S32.000A Wedge compression fracture of unspecified lumbar vertebra, initial encounter for closed fracture; E86.0 Dehydration; F32.9 Major depressive disorder, single episode, unspecified; G20 Parkinson's disease; Z51.5 Encounter for palliative care; J44.9 Chronic obstructive pulmonary disease, unspecified; K22.70 Barrett's esophagus without dysplasia; K59.00 Constipation, unspecified; R13.10 Dysphagia, unspecified; R29.6 Repeated falls; R62.7 Adult failure to thrive; Z87.891 Personal history of nicotine dependence; Z66 Do not resuscitate; W19.XXXA Unspecified fall, initial encounter; Z68.20 Body mass index [BMI] 20.0-20.9, adult
CPT/HCPCS: 36415; 70450; 70551; 71045; 80053; 80061; 80069; 81001; 82607; 82652; 82746; 83605; 83735; 84443; 84484; 85025; 86592; 92526; 92610; 93005; 93010; 96374; 97110; 97162; 97164; 97167; 97530; 97535; 99285-25; J1650; J1885; J3010

== ENCOUNTER 2019-04-03 14:30 | Inpatient (IN) | payer MEDICARE, OTHER ==
[~2019-04-03] VITALS: Ht 177.8 cm; Wt 47.3 kg
[~2019-04-03 14:30] MED LIST changes: +ALBU90OI INH; +LIDO700A20 TOP; +MORP20L SL; +Namenda5 MG PO; +SINEMET 25-1001 EACH PO
[2019-04-03 16:02] LABS: BASOPHILS ABSOLUTE AUTO 0.06 K/mm3 (0.00-0.23); BASOPHILS PERCENT AUTO 0 % (0-2); EOSINOPHILS ABSOLUTE AUTO 0.06 K/mm3 (0.00-0.68); EOSINOPHILS PERCENT AUTO 0 % (0-6); Hematocrit 46.7 % (37.0-53.0); Hemoglobin 15.2 g/dL (13.5-17.5); IMMATURE GRAN ABSOLUTE AUTO 0.09 K/mm3 (0.00-0.10); IMMATURE GRAN PERCENT AUTO 1 % (0-1); LYMPHOCYTES ABSOLUTE AUTO 1.04 K/mm3 (0.84-5.20); LYMPHOCYTES PERCENT AUTO 7 % (21-46); MONOCYTES ABSOLUTE AUTO 0.46 K/mm3 (0.16-1.47); MONOCYTES PERCENT AUTO 3 % (4-13); Mean Corpuscular HGB 30.9 pg (26.0-34.0); Mean Corpuscular HGB Conc 32.5 g/dL (31.5-36.5); Mean Corpuscular Volume 95 fL (80-100); Mean Platelet Volume 10.7 fL (9.1-12.4); NEUTROPHILS ABSOLUTE AUTO 12.46 K/mm3 (1.96-9.15); NEUTROPHILS PERCENT AUTO 88 % (41-73); Platelet Count 252 K/mm3 (150-400); RDW Coefficient Variation 13.3 % (11.7-14.2); RDW Standard Deviation 46.5 fL (35.1-46.3); Red Blood Cell Count 4.92 M/mm3 (4.30-5.90); White Blood Cell Count 14.17 K/mm3 (4.00-11.30)
[2019-04-03 16:27] LABS: Alanine Aminotransfer (ALT/SGP 40 U/L (12-78); Albumin/Globulin Ratio 0.9 (0.8-1.8); Alk Phos 188 U/L (50-136); Anion Gap 0 mmol/L (6-16); Aspartate Aminotrans (AST/SGOT 34 U/L (12-37); Bilirubin, Total 0.1 mg/dL (0.1-1.0); Blood Urea Nitrogen 22 mg/dL (8-24); Bun/Creatinine Ratio 31.4 (12.0-20.0); CO2, Blood 31 mmol/L (21-32); Chloride, Blood 107 mmol/L (98-108); Globulin, Blood 3.5 g/dL (2.2-4.0); Glomerular Filtration Rate >60 (60-); Glucose, Blood 80 mg/dL (70-99); Potassium, Blood 4.4 mmol/L (3.5-5.5); Sodium, Blood 138 mmol/L (136-145); Total Protein, Blood 6.5 g/dL (6.4-8.2); Troponin I <0.015 ng/mL (0.000-0.040)
[2019-04-03 16:40] LABS: Base Excess Venous 6.9 mmol/L; Bicarbonate Venous 28.7 mmol/L (24.0-30.0); PCO2 Venous 54 mmHg (38-42); PO2 Venous 52 mmHg (38-42); pH Blood Venous 7.38 (7.34-7.37)
[2019-04-04 06:15] LABS: BASOPHILS ABSOLUTE AUTO 0.02 K/mm3 (0.00-0.23); BASOPHILS PERCENT AUTO 0 % (0-2); EOSINOPHILS ABSOLUTE AUTO 0.04 K/mm3 (0.00-0.68); EOSINOPHILS PERCENT AUTO 0 % (0-6); Hematocrit 40.7 % (37.0-53.0); Hemoglobin 13.1 g/dL (13.5-17.5); IMMATURE GRAN ABSOLUTE AUTO 0.03 K/mm3 (0.00-0.10); IMMATURE GRAN PERCENT AUTO 0 % (0-1); LYMPHOCYTES ABSOLUTE AUTO 0.93 K/mm3 (0.84-5.20); LYMPHOCYTES PERCENT AUTO 8 % (21-46); MONOCYTES ABSOLUTE AUTO 0.36 K/mm3 (0.16-1.47); MONOCYTES PERCENT AUTO 3 % (4-13); Mean Corpuscular HGB 31.3 pg (26.0-34.0); Mean Corpuscular HGB Conc 32.2 g/dL (31.5-36.5); Mean Corpuscular Volume 97 fL (80-100); Mean Platelet Volume 11.2 fL (9.1-12.4); NEUTROPHILS ABSOLUTE AUTO 10.97 K/mm3 (1.96-9.15); NEUTROPHILS PERCENT AUTO 89 % (41-73); Platelet Count 194 K/mm3 (150-400); RDW Coefficient Variation 13.2 % (11.7-14.2); RDW Standard Deviation 47.7 fL (35.1-46.3); Red Blood Cell Count 4.18 M/mm3 (4.30-5.90); White Blood Cell Count 12.35 K/mm3 (4.00-11.30)
[2019-04-04 06:35] LABS: Anion Gap 3 mmol/L (6-16); Blood Urea Nitrogen 18 mg/dL (8-24); Bun/Creatinine Ratio 31.4 (12.0-20.0); CO2, Blood 26 mmol/L (21-32); Calcium, Blood 8.4 mg/dL (8.5-10.1); Chloride, Blood 108 mmol/L (98-108); Creatinine, Blood 0.57 mg/dL (0.60-1.20); Glomerular Filtration Rate >60 (60-); Glucose, Blood 83 mg/dL (70-99); Potassium, Blood 4.1 mmol/L (3.5-5.5); Sodium, Blood 137 mmol/L (136-145)
[2019-04-04 10:30] LABS: Influenza A Negative (NEGATIVE); Influenza B Negative (NEGATIVE)
--- NOTE | 2019-04-04 17:38 | NUR ---
SHIFT NOTE PT ARRIVED FROM ER WITH C/O POSSIBLE ASPIRATION. PER SO PT HAS A BASELINEOF AMS RELATED TO LEWY BODY DEMNTIA STS "HIS BRAIN IS DYING". PT AWAKES TO VERBAL OR PAINFUL STIMULI, ONLY VERBAL RESPONSE IS MOANS. PER SO PT HAD "HIS SICK VOICE TODAY" WHICH ALERTED HER THAT HE WAS NOT WELL. PER S/O LAST NOC SHE WAS ATTEMPTING TO FEED PT A BURRITO WHEN HE CHOKED STS "BUT HE DIDN'T INHALE IT I DON'T THINK" COARSE LUNG SOUNDS ARE NOTED T/O. IT SHOULD BE NOTED THAT PT HAS ABSENT LT RADIAL PULSE RELATED TO SURGIAL INTERVENTION. FLAGYL WAS HUNG ON ARRIVAL AND HAS COMPLETED. FAMILY CARE IS PROVIDED
[2019-04-05 04:15] LABS: BASOPHILS ABSOLUTE AUTO 0.03 K/mm3 (0.00-0.23); BASOPHILS PERCENT AUTO 0 % (0-2); EOSINOPHILS ABSOLUTE AUTO 0.08 K/mm3 (0.00-0.68); EOSINOPHILS PERCENT AUTO 1 % (0-6); Hematocrit 38.2 % (37.0-53.0); Hemoglobin 12.4 g/dL (13.5-17.5); IMMATURE GRAN ABSOLUTE AUTO 0.02 K/mm3 (0.00-0.10); IMMATURE GRAN PERCENT AUTO 0 % (0-1); LYMPHOCYTES ABSOLUTE AUTO 0.87 K/mm3 (0.84-5.20); LYMPHOCYTES PERCENT AUTO 11 % (21-46); MONOCYTES ABSOLUTE AUTO 0.29 K/mm3 (0.16-1.47); MONOCYTES PERCENT AUTO 4 % (4-13); Mean Corpuscular HGB 31.1 pg (26.0-34.0); Mean Corpuscular HGB Conc 32.5 g/dL (31.5-36.5); Mean Corpuscular Volume 96 fL (80-100); Mean Platelet Volume 11.3 fL (9.1-12.4); NEUTROPHILS ABSOLUTE AUTO 6.89 K/mm3 (1.96-9.15); NEUTROPHILS PERCENT AUTO 84 % (41-73); Platelet Count 161 K/mm3 (150-400); RDW Coefficient Variation 13.4 % (11.7-14.2); RDW Standard Deviation 47.6 fL (35.1-46.3); Red Blood Cell Count 3.99 M/mm3 (4.30-5.90); White Blood Cell Count 8.18 K/mm3 (4.00-11.30)
[2019-04-05 04:29] LABS: Albumin, Blood 2.2 g/dL (3.4-5.0); Anion Gap 5 mmol/L (6-16); Blood Urea Nitrogen 17 mg/dL (8-24); Bun/Creatinine Ratio 26.5 (12.0-20.0); CO2, Blood 27 mmol/L (21-32); Chloride, Blood 109 mmol/L (98-108); Creatinine, Blood 0.64 mg/dL (0.60-1.20); Glomerular Filtration Rate >60 (60-); Glucose, Blood 72 mg/dL (70-99); Phosphorus, Blood 2.6 mg/dL (2.5-4.9); Potassium, Blood 3.9 mmol/L (3.5-5.5); Sodium, Blood 141 mmol/L (136-145)
--- NOTE | 2019-04-05 05:52 | NUR ---
SHIFT SUMMARY PT SLEEPING MAJORITY OF SHIFT. OPENS EYES TO VERBAL STIMULATION W/ TOUCH. PT'S SPOUSE CAUTIONS STAFF THAT PT CAN BE COMBATIVE WHEN WOKEN FROM SLEEP OR APPROACHED SUDDENLY. PT FOUND TO STARTLE EASILY AND HAVE RAISED FIST AT STAFF WHEN ATTEMPTING TO GENTLY NUDGE PT AWAKE. PT EASILY CALMS W/ REASSURANCE. PT MOSTLY QUIET W/ OCCASSIONAL MOANING AND FEW MUMBLED WORDS, DIFFICULT TO UNDERSTAND. PT NOT ABLE TO ANSWER Q's AT THIS TIME. PT'S SPOUSE STATES PT NORMALLY MORE VERBAL WHEN HOME AND FEELING BETTER. PT BP LOW THIS SHIFT, OTHERWISE VSS. MONITOR SHOWS SB-SR, HR 50's-70's. SPO2 > 92% ON 2L NC, TITRATED TO RA THIS SHIFT. PT W/ CONTRACTURES TO EXTREMITIES. Q2H REPOSITIONING W/ 2 PERSON MAX ASSIST. PRN DIMITRIOS CARE/ATTENDS CHANGES PROVIDED. PT W/ REDDENED AREA TO COCCYX. PRESSURE ULCER TO L HIP, THAT PT'S SPOUSE REPORTS TO BE IMPROVING. PT CONTINUES TO BE NPO. (+) BLOOD CX'S CALLED TO CLINICAL SUPPORT TECH SUNSHINE THIS SHIFT. PT RECIEVING IV ABX PER EMAR. WILL CONTINUE TO MONITOR AND PROVIDE CARE UNTIL REPORT OFF TO DAY SHIFT RN.
--- NOTE | 2019-04-05 19:21 | NUR ---
SHIFT SUMMARY PT IS TOLERATING PUREE DIET WITH NECTAR FLUIDS WITH NO PROBLEMS. HE HAS A HEALTHY APPETITE. HIS HAS BEEN AT THE BEDSIDE ASSISTING WITH FEEDINGS. PT LEFT SITTING UP AT A 70% ANGLE FOR 30 AFTER EATING. PT REPOSITIONED FREQUENTLY TO PREVENT BREAKDOWN, HEELS FLOATED, PADDED DRSG'S WERE PLACED TO BILAT HIPS/COCCYX, ATTENDS CHANGED PRN. PT HAS BEEN ON ROOM AIR TODAY, O2 SATS >93%, VSS, RESP UNLBORED, LUNGS ARE COURSE, OCCASIONAL NON PRODUCTIVE COUGH NOTED. ABX AND NS INFUSING PER EMAR. PT HAS CLEARED IN MENTATION SIGNIFICANTLY TODAY. HE WILL ANSWER QUESTIONS AND FOLLOW COMMANDS. BED ALARM IS ON FOR SAFETY. REPORT GIVEN TO [facility] NURSE, CALL LIGHT IN REACH
[2019-04-06 04:25] LABS: Hematocrit 35.4 % (37.0-53.0); Hemoglobin 11.7 g/dL (13.5-17.5); Mean Corpuscular HGB 31.2 pg (26.0-34.0); Mean Corpuscular HGB Conc 33.1 g/dL (31.5-36.5); Mean Corpuscular Volume 94 fL (80-100); Platelet Count 156 K/mm3 (150-400); RDW Coefficient Variation 13.5 % (11.7-14.2); Red Blood Cell Count 3.75 M/mm3 (4.30-5.90)
[2019-04-06 04:50] LABS: Albumin, Blood 2.2 g/dL (3.4-5.0); Anion Gap 5 mmol/L (6-16); Blood Urea Nitrogen 18 mg/dL (8-24); Bun/Creatinine Ratio 25.2 (12.0-20.0); CO2, Blood 26 mmol/L (21-32); Calcium, Blood 7.9 mg/dL (8.5-10.1); Chloride, Blood 108 mmol/L (98-108); Creatinine, Blood 0.71 mg/dL (0.60-1.20); Glomerular Filtration Rate >60 (60-); Glucose, Blood 79 mg/dL (70-99); Phosphorus, Blood 1.7 mg/dL (2.5-4.9); Potassium, Blood 3.8 mmol/L (3.5-5.5); Sodium, Blood 139 mmol/L (136-145)
--- NOTE | 2019-04-06 05:53 | NUR ---
SHIFT SUMMARY PT MEDICAL NO TELE STATUS. PT ALERT, MUMBLES SOME WORDS, UNABLE TO COMMUNICATE W/ STAFF. LUNG SOUNDS COARSE. SPO2 > 92% ON RA. PT INCONTINENT, WEARING ATTENDS. PT W/ CONTRACTURES TO BILAT UPPER AND LOWER EXTREMITIES. SKIN FRAGILE. MEPILEX DRESSINGS IN PLACE TO BONY PROMINENCES FOR SKIN PROTECTION. PRESSURE ULCER NOTED TO L HIP. COCCYX RED. Q2H REPOSITIONING W/ MAX ASSIST BY 2 STAFF. NS GTT INFUSING PER ORDERS. PT SPOUSE AT BEDSIDE T/O SHIFT. WILL CONTINUE TO MONITOR AND PROVIDE CARE UNTIL REPORT OFF TO DAY SHIFT RN.
--- NOTE | 2019-04-06 08:55 | NUR ---
NURSING PCU DAYSHIFT: Assumed care of pt at 0700. Arouses to verbal/gentle physical stimuli. Ext's are contracted, weak/gross movement, no fine motor skills. Occasionally mumbles but not able to converse or answer questions this a.m. Skin is fragile, wound to R hip, reddened area noted on coccyx, alanna prominences t/o requiring mepilex dressings. No tele in place, HRR, no c/o CP/pressure, SBP 110, HR 70's, no noted edema. L/S coarse in upper lobes, clear LLL, dim R base, moist/QUALITY CONTROL SUPERVISOR/weak cough, O2 sat mid 90's on RA, respirations shallow and unlabored. Abd SNT, BT+, incontinent of urine, attends in place. PIV x1, s/l. No s/s of acute distress at this time. Spouse at bedside assisting w/pt's ADL's, call light in reach of spouse. Pt remains medical status w/o tele. Requires Q2 hr turns/repositioning to maintain skin health and pressure ulcer prevention. Spouse denies any current needs or questions regarding pt's plan of care, awaiting rounding from PMD, cont to monitor for any changes.
--- NOTE | 2019-04-06 18:37 | NUR ---
SHIFT SUMMARY PT TRANSFERRED FROM PCU5 THIS SHIFT. VSS. PT ON RA AT THIS TIME. IV PATENT AND INFUSNG PER EMAR. NO ACUTE CHANGES SINCE ARRIVAL TO [facility]. SUCTION AT BEDSIDE FOR PRN USE. SPOUSE IN ROOM TO PROVIDE SUPPORT AND CARE TO PT. BED IN LOW POSITION, CALL LIGHT WITHIN REACH, BD ALARM ON.
--- NOTE | 2019-04-07 04:24 | NUR ---
SHIFT SUMMARY PT HAS HAD NO ACUTE CHANGES THIS SHIFT, NO C/O ANY KIND, NO INDICTAIONS OF PAIN OR DISCOMFORT, REPOSITIONED Q2, SPOUSE @ BEDSIDE T/O SHIFT, PT APPEARS TO BE SLEEPING AT THIS TIME, CALL LIGHT IN REACH, BED ALARM ACTIVE, WILL CONT TO MONITOR UNTIL REPORT GIVEN TO DAY RN.
[2019-04-07 05:20] LABS: Hematocrit 37.6 % (37.0-53.0); Hemoglobin 12.4 g/dL (13.5-17.5); Mean Corpuscular Volume 94 fL (80-100); Mean Platelet Volume 11.1 fL (9.1-12.4); Platelet Count 164 K/mm3 (150-400); RDW Coefficient Variation 13.5 % (11.7-14.2); RDW Standard Deviation 46.3 fL (35.1-46.3); White Blood Cell Count 6.57 K/mm3 (4.00-11.30)
[2019-04-07 05:39] LABS: Albumin, Blood 2.4 g/dL (3.4-5.0); Anion Gap 5 mmol/L (6-16); Blood Urea Nitrogen 9 mg/dL (8-24); Bun/Creatinine Ratio 12.3 (12.0-20.0); CO2, Blood 29 mmol/L (21-32); Calcium, Blood 8.2 mg/dL (8.5-10.1); Chloride, Blood 106 mmol/L (98-108); Creatinine, Blood 0.73 mg/dL (0.60-1.20); Glomerular Filtration Rate >60 (60-); Glucose, Blood 77 mg/dL (70-99); Phosphorus, Blood 2.5 mg/dL (2.5-4.9); Potassium, Blood 3.8 mmol/L (3.5-5.5); Sodium, Blood 140 mmol/L (136-145)
--- NOTE | 2019-04-07 14:25 | NUR ---
Barber Pollard, a [facility] acute care nursing assistant, was given permission by Georges Archer on 04/07/2019 to provide care for Georges Archer on 04/08/2019.
--- NOTE | 2019-04-07 16:52 | NUR ---
Met with patient and to review needs. pt makes some eye contact and attempts to follow conversation. Pt has sunken temples and face, he is mask like. some stiffening and tighness noted. states he just had some constipation whick has resolved no signs of nausea. Se has noted change in appetite and and difficulty swallowing. Reivw of care needs and their life at home presents with some significat stress to . She has not been taking him to physician appointments due to difficulty with transport. States he has been on carvadopa and muscles are looser and then he gets more impulsive and falls more. She has moved the matress to the floor so he can be moble. He at time crawls on floor. She states that when he eats he does ok with food but at times minimal appetite. Her son lives with them and helps watch him so she can shop and get out once in wile. She presents as rarely having a break and has to be aware of him twenty four seven. she is struggling at this time with incontinence and bedsores. Review of help that hospice can give. She was open to conversation. However, not sure how much she took in. She expressed some stress at home also. She is getting some of her food from food bank. Appears to stuggle with accepting or understanding some of the levels of care. May be resisstant to help in the home. Pt would benefit from managment of parkinsons meds and symptoms. Reenforced the help it would give her. Updated hospice liason and advised pt they will come see her tomorrow. Will review polst and her and symptom management for future care. Ended conversation with supportive time with and praising her care and reviewing healthcare account manager stress. She rlayed that with her son home theotherday she was able totake a shower not a bath. She must remain vigilant and always within earshot of pt. Acknolged her stress and fatigue and reenforced supportive care. Will update care manger may need to assess her financial stress.
--- NOTE | 2019-04-07 17:29 | NUR ---
SHIFT SUMMARY. ALERT, DISORIENTATED, BASELINE COGNITION. PT CONTINUES WITH BILATERAL COARSE LUNG SOUNDS, RA. PT CONTINUES WITH MOIST NON PRODUCTIVE COUGH. ORAL CARE COMPLETED AFTER EACH MEAL WITH SUCTION. MEPILEX TO BILATERAL HIPS CHANGED, L HIP STAGE II DECUBITUS PHOTO DOCUMENTATION COMPLETED. MEPILEX TO COCCYX INTACT. BILATERAL HEEL MEPILEX APPLIED FOR PREVENTION. INCONTINENCE CARE AND REPOSITIONING COMPLETED PER TURN SCHEDULE, PT HAS LARGE VOIDS. AT BEDSIDE MOST OF THE SHIFT ASSISTING WITH CARE. PT APPEARS TO BE IN NO DISTRESS OR DISCOMFORT. NO NEW CHANGES.
[2019-04-08 05:47] LABS: BASOPHILS ABSOLUTE AUTO 0.03 K/mm3 (0.00-0.23); BASOPHILS PERCENT AUTO 0 % (0-2); EOSINOPHILS ABSOLUTE AUTO 0.06 K/mm3 (0.00-0.68); EOSINOPHILS PERCENT AUTO 1 % (0-6); Hematocrit 37.6 % (37.0-53.0); Hemoglobin 12.5 g/dL (13.5-17.5); IMMATURE GRAN ABSOLUTE AUTO 0.03 K/mm3 (0.00-0.10); IMMATURE GRAN PERCENT AUTO 0 % (0-1); LYMPHOCYTES ABSOLUTE AUTO 1.33 K/mm3 (0.84-5.20); LYMPHOCYTES PERCENT AUTO 16 % (21-46); MONOCYTES ABSOLUTE AUTO 0.35 K/mm3 (0.16-1.47); MONOCYTES PERCENT AUTO 4 % (4-13); Mean Corpuscular HGB 30.9 pg (26.0-34.0); Mean Corpuscular HGB Conc 33.2 g/dL (31.5-36.5); Mean Corpuscular Volume 93 fL (80-100); Mean Platelet Volume 11.1 fL (9.1-12.4); NEUTROPHILS ABSOLUTE AUTO 6.35 K/mm3 (1.96-9.15); NEUTROPHILS PERCENT AUTO 78 % (41-73); Platelet Count 186 K/mm3 (150-400); RDW Coefficient Variation 13.4 % (11.7-14.2); RDW Standard Deviation 45.5 fL (35.1-46.3); Red Blood Cell Count 4.05 M/mm3 (4.30-5.90); White Blood Cell Count 8.15 K/mm3 (4.00-11.30)
--- NOTE | 2019-04-08 05:52 | NUR ---
SHIFT SUMMARY ALERT AND AT BASELINE PER . COOPERATIVE WITH CARE. NO C/O OR SIGNS OF PAIN/DISCOMFORT. HYPOTENSIVE AT BEGINNING OF SHIFT. SPOKE TO ON-CALL PHYSICIAN STATED PATIENT TENDS TO RUN HIGH AND LOW WITH BP; BUT TO GIVE 500ML BOLUS. VS REPEATED AND APPEARED WNL. VSS AND AFEBRILE THIS AM. NO ACUTE CHANGES NOTED OVERNIGHT. REPOSITIONED. REPLACED PROTECTION DRESSING TO COCCYX. RUBBED OFF HEEL PROTECTORS THAT WERE PLACED BY PREVIOUS SHIFT; WILL REPLACE. @ BEDSIDE. APPEARED TO REST MUCH OF SHIFT. BED IN LOWEST POSITION; ALARM ON. CALL LIGHT IN REACH. WCTM. REPORT TO ONCOMING RN.
[2019-04-08 06:12] LABS: Anion Gap 4 mmol/L (6-16); Blood Urea Nitrogen 7 mg/dL (8-24); Bun/Creatinine Ratio 8.7 (12.0-20.0); CO2, Blood 30 mmol/L (21-32); Calcium, Blood 8.1 mg/dL (8.5-10.1); Chloride, Blood 107 mmol/L (98-108); Creatinine, Blood 0.81 mg/dL (0.60-1.20); Glomerular Filtration Rate >60 (60-); Glucose, Blood 79 mg/dL (70-99); Potassium, Blood 3.9 mmol/L (3.5-5.5); Sodium, Blood 141 mmol/L (136-145)
[2019-04-08] MEDS ORDERED: ACET325 PO (11:23)
[2019-04-08] MEDS ORDERED: ALBU90OI INH (11:24)
[2019-04-08] MEDS ORDERED: AMOCLA500 PO (11:25)
[2019-04-08] MEDS ORDERED: Vsl#3 Capsule1 EACH PO (11:25)
--- NOTE | 2019-04-08 17:04 | NUR ---
1700 PT DISHCARGED HOME VIA GURNEY TRANSPORT. IV REMOVED. D/C PAPERWORK REVIEWED WITH AND COPY PROVIDED. PT'S PICKED UP PRESCRIPTIONS PRIOR TO D/C. PT LETHARGIC MOST OF SHIFT AND UNABLE TO TAKE PO INTAKE. INCONTINENCE CARE PROVIDED DURING SHIFT. NO NEW CHANGES OR CONCERNS.
== END 2019-04-08 17:02 | disposition hospice, home (50) | DRG 871 ==
LOC: ER 14:30 → ERHOLD 21:26 → PCU 04-04 13:37 → MEDS 04-06 16:00
PROVIDERS: Emergency Medicine; Family Medicine; Internal Medicine; ADMIT Hospitalist
DX: A41.1 Sepsis due to other specified staphylococcus (principal); J96.01 Acute respiratory failure with hypoxia; J69.0 Pneumonitis due to inhalation of food and vomit; R65.21 Severe sepsis with septic shock; G93.41 Metabolic encephalopathy; E43 Unspecified severe protein-calorie malnutrition; J44.1 Chronic obstructive pulmonary disease with (acute) exacerbation; Z68.1 Body mass index [BMI] 19.9 or less, adult; J44.9 Chronic obstructive pulmonary disease, unspecified; G20 Parkinson's disease; F02.80 Dementia in other diseases classified elsewhere, unspecified severity, without behavioral disturbance, psychotic disturbance, mood disturbance, and anxiety; Z51.5 Encounter for palliative care; R62.7 Adult failure to thrive; R29.6 Repeated falls; I95.9 Hypotension, unspecified; Z66 Do not resuscitate; E83.39 Other disorders of phosphorus metabolism; L89.152 Pressure ulcer of sacral region, stage 2; K22.70 Barrett's esophagus without dysplasia; E86.0 Dehydration; Z87.891 Personal history of nicotine dependence
CPT/HCPCS: 36415; 71045; 80048; 80053; 80069; 82803; 83605; 83880; 84484; 85025; 85027; 85379; 87040; 87077; 87186; 87804; 90686; 92526; 92610; 93005; 93010; 94640; 94760; 96361; 96365; 96367; 96372-59; 96375; 96376; 97161; 99285-25; G0008; J0456; J0696; J1650; J2405; J7030; J7040; J7050; J7060